=== PATIENT | male | born 2000 | race Caucasian/White ===

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

== ENCOUNTER 2022-07-30 14:08 | Observation (INO) | payer BC ==
[2022-07-30] VITALS (9 sets, daily range): BP systolic 114–128; BP diastolic 60–90
[~2022-07-30] VITALS: Ht 177.8 cm; Wt 75.0 kg
[~2022-07-30 14:08] MED LIST changes: +BACTRIM DS1 TAB PO; +CEPHALEXIN500 MG PO
--- NOTE | 2022-07-30 15:16 | NUR ---
PATIENT TO ROOM AMBULATORY AND PHYSICIAN NOTIFIED OF STATUS
[2022-07-30 15:34] LABS: HEMATOCRIT 46.8 % (39.0-50.0); HEMOGLOBIN 16.4 g/dl (14.0-18.0); IMMATURE GRANULOCYTES 0.2 % (0.0-5.0); MEAN CELL VOLUME 83.4 fL CALC (80.0-100.0); MEAN CORPUSCULAR HGB 29.2 pG CALC (26.0-32.0); NEUT# 9.45 thou/uL (1.82-7.42); RED BLOOD COUNT 5.61 mill/uL (4.70-6.10); RED CELL DISTRI WIDTH 12.7 % (11.5-15.5)
[2022-07-30 15:35] LABS: URINE BILIRUBIN - DIPSTICK NEGATIVE (NEGATIVE); URINE BLOOD DIPSTICK NEGATIVE (NEGATIVE); URINE COLOR YELLOW; URINE GLUCOSE - DIPSTICK NEGATIVE (NEGATIVE); URINE KETONE NEGATIVE (NEGATIVE); URINE LEUK ESTERASE NEGATIVE (NEGATIVE); URINE NITRITE - DIPSTICK NEGATIVE (Negative); URINE PROTEIN - DIPSTICK NEGATIVE (NEG-TRACE); URINE SPECIFIC GRAVITY 1.015; URINE UROBILINOGEN - DIPSTICK 0.2 E.U./dL (0.2)
[2022-07-30 15:51] LABS: ALKALINE PHOSPHATASE 104 u/l (38-126); ANION GAP 13 (6-22 (CALC)); BUN 9 mg/dL (9-20); BUN/CREATININE RATIO 10 (12-20 (CALC)); CARBON DIOXIDE 31 mmol/l (22-30); CHLORIDE 100 mmol/l (95-108); GFR FOR AFR.AMER. > 60 ML/MIN (>=60 (CALC)); GFR OTHER RACES > 60 ML/MIN (>=60 (CALC)); LIPASE 48 u/l (23-300); POTASSIUM 4.3 mmol/l (3.5-5.1); SGOT/AST 30 u/l (17-59); SODIUM 140 mmol/l (137-146); TOTAL PROTEIN 7.8 g/dL (6.3-8.2)
[2022-07-30 15:52] LABS: BILIRUBIN, TOTAL 0.8 mg/dL (0.0-1.4)
--- NOTE | 2022-07-30 19:00 | NUR ---
PT TAKEN TO OR BY OR NURSE. PT IN NAD. FAMILY AT BEDSIDE.
[2022-07-30] MEDS ORDERED: PERCOCET 5/325M1 TAB PO (19:45)
--- NOTE | 2022-07-30 22:50 | NUR ---
PT ARRIVED TO MS @2250 VIA STRETCHER, ACCOMPANIED BY OR NURSE. RECEIVED REPORT FROM PRAKASH OROURKE. FAMILY AT BEDSIDE. PT ORIENTED TO ROOM AND USE OF CALL LIGHT. VS AND ASSESSMENT COMPLETED. PT A&O X3. EVEN AND UNLABORED RESPIRATIONS; CLEAR LUNG SOUNDS UPON AUSCULTATION. ACTIVE BOWEL SOUNDS X4 QUADRANTS. LAP APPY INCISIONS ON ABD NOTED: 3 INCISIONS, CLOSED WITH DERMABOND. SCD'S APPLIED. IV SITE HEALTHY AND PATENT. SAFETY PRECAUTIONS IN PLACE WITH CALL LIGHT IN REACH.
[2022-07-31 00:02] VITALS: BP 125/61
[2022-07-31 00:03] VITALS: BP 111/59
[2022-07-31 00:31] VITALS: BP 93/57
[2022-07-31 01:00] VITALS: BP 117/60
--- NOTE | 2022-07-31 03:40 | NUR ---
PT ASSISTED TO BATHROOM. PT BACK IN BED. PT C/O ABD PAIN, LEVEL 8/10; ADMINISTERED PAIN MED PER EMAR. IV SITE HEALTHY AND PATENT, INFUSING FLUIDS PER EMAR. SAFETY PRECAUTIONS IN PLACE WITH CALL LIGHT IN REACH.
[2022-07-31 04:14] VITALS: BP 103/57
[2022-07-31 06:45] VITALS: BP 113/57
--- NOTE | 2022-07-31 07:51 | NUR ---
PT RESTING IN HIGH FOWLERS POSITION. PT ASSESSMENT AND VS COMPLETED. HEART RHYTHM NORM RESPIRATIONS ON ROOM AIR. PT DENIES PAIN MEDICATIONS AT THE TIME. IV SITE NOTED TO RAC NS INFUSING.PT DENIES ADDITIONAL NEEDS AT THE TIME ALL SAFETY PRECAUTIONS IN PLACE CALL LIGHT INREACH.
--- NOTE | 2022-07-31 12:20 | NUR ---
PT TO BE DC SOON TOLERATES DIET.
--- NOTE | 2022-07-31 13:12 | NUR ---
Discharge instructions given. Patient verbalizes understanding of same. Discharged in stable condition via Wheelchair to Home with staff. All belongings sent with pt. IV REMOVED.
[2022-08-06] MEDS ORDERED: OMEPRAZOLE DR20 MG (09:46)
== END 2022-07-31 13:05 | disposition home or self-care (01) | DRG 343 ==
LOC: ED 14:08 → ED-I 17:40 → ED 18:00 → MS2 18:01
PROVIDERS: Nurse Practitioner; ADMIT Surgery; ATTEND Surgery
PROC: 0DTJ4ZZ Resection of Appendix, Percutaneous Endoscopic Approach (ICD-10-PCS; principal; 2022-07-30)
DX: K35.891 Other acute appendicitis without perforation, with gangrene (principal)
CPT/HCPCS: J0131; Q9967

== ENCOUNTER 2022-08-01 07:58 | Inpatient (IN) | payer BC ==
[2022-08-01] VITALS (20 sets, daily range): BP systolic 113–154; BP diastolic 65–98
[~2022-08-01] VITALS: Ht 177.8 cm; Wt 90.7 kg
[~2022-08-01 07:58] MED LIST changes: +PERCOCET 5/325M1 TAB PO
[2022-08-01 09:16] LABS: HEMATOCRIT 44.7 % (39.0-50.0); HEMOGLOBIN 15.6 g/dl (14.0-18.0); IMMATURE GRANULOCYTES 0.1 % (0.0-5.0); MEAN CORPUSCULAR HGB 29.3 pG CALC (26.0-32.0); MEAN CORPUSCULAR HGB CONC 34.9 g/dL CAL (32.0-36.0); RED BLOOD COUNT 5.32 mill/uL (4.70-6.10); RED CELL DISTRI WIDTH 12.6 % (11.5-15.5)
--- NOTE | 2022-08-01 09:16 | NUR ---
md GIVEN BASIC REPORT OF TRIAGE FINDINGS, READY TO BE SEEN. IV ESTABLISHED, LABS DRAWN AND SENT. FAMILY @ BS
--- NOTE | 2022-08-01 09:18 | NUR ---
NIKOLAS ASCENCIO 2 DAYS AGO, [place] NEXT DAY, ATE, THIS AM 3AM MEDICATED WITH OXY, VOMITED 3-4 TIMES SINCE- REFRAINED FROM 7AM OXY DOSE . 7-8 PAIN.
[2022-08-01 09:29] LABS: ALKALINE PHOSPHATASE 97 u/l (38-126); ANION GAP 10 (6-22 (CALC)); BUN 7 mg/dL (9-20); BUN/CREATININE RATIO 8 (12-20 (CALC)); CARBON DIOXIDE 30 mmol/l (22-30); CHLORIDE 101 mmol/l (95-108); CREATININE 0.8 mg/dL (0.7-1.3); GFR FOR AFR.AMER. > 60 ML/MIN (>=60 (CALC)); GFR OTHER RACES > 60 ML/MIN (>=60 (CALC)); LIPASE 17 u/l (23-300); POTASSIUM 3.9 mmol/l (3.5-5.1); SGOT/AST 28 u/l (17-59); SODIUM 137 mmol/l (137-146); TOTAL PROTEIN 7.4 g/dL (6.3-8.2)
[2022-08-01 09:30] LABS: BILIRUBIN, TOTAL 1.2 mg/dL (0.0-1.4)
--- NOTE | 2022-08-01 10:02 | NUR ---
@ BS, STATES PAIN STILL 710, UNABLE TO VOID FOR U/A
--- NOTE | 2022-08-01 10:11 | NUR ---
VOID 100 DARK BELLE- U/A SENT,
[2022-08-01 10:18] LABS: URINE BLOOD DIPSTICK NEGATIVE (NEGATIVE); URINE COLOR YELLOW; URINE GLUCOSE - DIPSTICK NEGATIVE (NEGATIVE); URINE KETONE 40 mg/dL (NEGATIVE); URINE LEUK ESTERASE NEGATIVE (NEGATIVE); URINE PROTEIN - DIPSTICK TRACE mg/dL (NEG-TRACE)
[2022-08-01 10:20] LABS: URINE BILIRUBIN - DIPSTICK SMALL (NEGATIVE); URINE NITRITE - DIPSTICK NEGATIVE (Negative)
--- NOTE | 2022-08-01 11:05 | NUR ---
RESTING QUIETLY WITH STATED RELIEF
--- NOTE | 2022-08-01 11:35 | NUR ---
PAIN 1, RESTING
--- NOTE | 2022-08-01 12:32 | NUR ---
PT IS BEING ADMITTED TO MS. PT IS AWARE OF PLAN AND IS WAITING FOR BED ASSIGNMENT
--- NOTE | 2022-08-01 13:21 | NUR ---
Reassessment of patient completed. No distress noted. PT IS RESTING WITH EYES CLOSED.
--- NOTE | 2022-08-01 14:20 | NUR ---
Reassessment of patient completed. No distress noted.
--- NOTE | 2022-08-01 15:28 | NUR ---
NURSE TOOK PT OFF FLOOR
--- NOTE | 2022-08-01 15:49 | NUR ---
PT ADMITTED TO [facility] 276. BEDSIDE REPORT GIVEN TO JONES. MOTHER IS IN ROOM WITH PT. PT TRANSPORTED VIA WHEELCHAIR TO ROOM
--- NOTE | 2022-08-01 16:31 | NUR ---
PT A/OX3 ASSESSMENT AND VS COMPLETED. PT HEART RHYTHM NORM. RESPIRATIONS NON LABORED ON ROOM AIR. PT IV SITE 20G TO RAC. BOWEL SOUNDS HYPOACTIVE. PT C/O PAIN PROVIDER INFORMED. PROVIDER STATED TRY PAIN MEDICATION ORDERED FIRST IF MEDICATION DOES NOT CONTROL PAIN NEW ORDER TO BE SENT TO PHARMACY. PT DENIES ADDITIONAL NEEDS AT THE TIME ALL SAFETY PRECAUTIONS IN PLACE CALL LIGHT INREACH.
--- NOTE | 2022-08-01 19:50 | NUR ---
PT IN BED WATCHING TV. NO S/S OF DISTRESS NOTED. A&OX3 ABLE TO MAKE NEEDS KNOW. ASSESMENT COMPLETED. CALL LIGHT IN REACH AND BED IN LOWEST POSITION.
--- NOTE | 2022-08-02 00:53 | NUR ---
PT IN BED RESTING WITH EYES CLOSED BREATHING EVEN AND UNLABORED. NO S/S OF DISTRESSNOTED. CALL LIGHT INNREACH AND BED IN LOWEST POSITION.
[2022-08-02 03:48] VITALS: BP 113/69
[2022-08-02 04:00] VITALS: BP 113/69
--- NOTE | 2022-08-02 04:36 | NUR ---
PT IN BED RESTING WITH EYES CLOSED BREATHING EVEN AND UNLABORED. NO S/S OF DISTRESS NOTED. CALL LIGHT IN REACH AND BED IN LOWEST POSITION
[2022-08-02 05:26] LABS: HEMATOCRIT 39.7 % (39.0-50.0); IMMATURE GRANULOCYTES 0.1 % (0.0-5.0); MEAN CELL VOLUME 86.7 fL CALC (80.0-100.0); MEAN CORPUSCULAR HGB 29.5 pG CALC (26.0-32.0); NEUT# 5.37 thou/uL (1.82-7.42); RED BLOOD COUNT 4.58 mill/uL (4.70-6.10); RED CELL DISTRI WIDTH 12.6 % (11.5-15.5)
[2022-08-02 05:35] LABS: HEMOGLOBIN 13.5 g/dl (14.0-18.0)
[2022-08-02 05:40] LABS: ALBUMIN 3.2 g/dL (3.2-5.0); ALKALINE PHOSPHATASE 72 u/l (38-126); ANION GAP 10 (6-22 (CALC)); BUN 6 mg/dL (9-20); BUN/CREATININE RATIO 7 (12-20 (CALC)); CARBON DIOXIDE 28 mmol/l (22-30); CHLORIDE 104 mmol/l (95-108); CREATININE 0.8 mg/dL (0.7-1.3); GFR FOR AFR.AMER. > 60 ML/MIN (>=60 (CALC)); GFR OTHER RACES > 60 ML/MIN (>=60 (CALC)); SGOT/AST 23 u/l (17-59); SODIUM 138 mmol/l (137-146)
[2022-08-02 05:45] LABS: BILIRUBIN, TOTAL 0.6 mg/dL (0.0-1.4); TOTAL PROTEIN 5.8 g/dL (6.3-8.2)
--- NOTE | 2022-08-02 07:31 | NUR ---
BEDSIDE SHIFT REPORT, PT AWAKE ALERT AND ORIENTED SITTING UP IN BED, C/O ABD PAIN @ 2/10, IVF D5.45 INFUSING @ 125 TO SITE IN RAC, REPORTS HE HAS BEEN HAVING LOOSE BMS. CALL THOMAS IN REACH AND BED LOCKED IN LOWEST POSTION.
--- NOTE | 2022-08-02 12:23 | NUR ---
RELAXING IN BED, DENIES PAIN BUT STATES HE IS STILL HAVING DIARRHEA WHICH IS GETTING BETTER.
--- NOTE | 2022-08-02 13:57 | NUR ---
Discharge instructions given. Patient verbalizes understanding of same. Discharged in fair condition via Wheelchair to Home with mother. All belongings sent with pt.
== END 2022-08-02 13:48 | disposition home or self-care (01) | DRG 390 ==
LOC: ED 07:58 → ED-I 11:50 → ED 12:15 → MS2 12:16
PROVIDERS: Family Medicine; ADMIT Surgery; ATTEND Surgery
DX: K56.0 Paralytic ileus (principal); T40.605A Adverse effect of unspecified narcotics, initial encounter; E86.0 Dehydration; Z90.49 Acquired absence of other specified parts of digestive tract
CPT/HCPCS: Q9967